=== PATIENT | female | born 2000 | race Hispanic/Latino ===

== ENCOUNTER 2024-02-29 16:07 | Observation (INO) | payer OTHER ==
[~2024-02-29] VITALS: Ht 157.5 cm; Wt 74.0 kg
[2024-02-29 16:56] LABS: BASOPHILS % 0.3 % (0.0-1.0); EOSINOPHILS % 0.2 % (0.0-6.0); HEMATOCRIT 44.9 % (34.2-44.1); HEMOGLOBIN 15.3 g/dL (12.0-16.0); LYMPHOCYTES # (AUTO) 1.4 (1.0-3.2); LYMPHOCYTES % 10.9 % (18.0-39.1); MEAN CORPUSCULAR HEMOGLOBIN 31.3 pg (28-32); MEAN CORPUSCULAR HGB CONC 34.1 g/dL (31-35); MEAN CORPUSCULAR VOLUME 91.8 fL (81-99); MONOCYTES # (AUTO) 0.2 (0.2-0.8); MONOCYTES % 1.8 % (4.4-11.3); NEUTROPHILS # (AUTO) 10.8 (2.1-6.9); NEUTROPHILS % 86.5 % (38.7-80.0); PLATELET COUNT 414 x10e3/uL (140-360); RED BLOOD COUNT 4.89 x10e6/uL (3.6-5.1); RED CELL DISTRIBUTION WIDTH 12.3 % (11.7-14.4); WHITE BLOOD COUNT 12.51 x10e3/uL (4.8-10.8)
[2024-02-29 17:12] LABS: ALANINE AMINOTRANSFERASE 57 IU/L (0-55); ALBUMIN 4.4 g/dL (3.5-5.0); ALBUMIN/GLOBULIN RATIO 1.3 (0.8-2.0); ALKALINE PHOSPHATASE 104 IU/L (40-150); ANION GAP 16.4 mmol/L (8-16); BILIRUBIN,TOTAL 0.5 mg/dL (0.2-1.2); BLOOD UREA NITROGEN 16 mg/dL (7-26); BUN/CREATININE RATIO 19 (6-25); CALCIUM 9.4 mg/dL (8.4-10.2); CARBON DIOXIDE 20 mmol/L (22-29); CHLORIDE 105 mmol/L (98-107); CREATININE, SERUM 0.84 mg/dL (0.57-1.11); EST GLOMERULAR FILTRATION RATE 99 ML/MIN (>=60); GLUCOSE 102 mg/dL (74-118); POTASSIUM 4.4 mmol/L (3.5-5.1); SODIUM 137 mmol/L (136-145); TOTAL PROTEIN 7.7 g/dL (6.5-8.1)
[2024-02-29 17:18] LABS: TROPONIN I < 0.001 ng/mL (0-0.300)
[2024-02-29] MEDS ORDERED: IOPAMIDOL 370 MG/ML 100 ML INFUS..BTL INJ ONE (17:20)
[2024-02-29 17:29] LABS: INFLUENZAE A&B ANTIGEN (RAPID) NEGATIVE (NEGATIVE); RESPIRATORY SYNC. VIRUS NEGATIVE (NEGATIVE)
[2024-02-29] MEDS: SODIUM CHLORIDE 0.9% 1000ML 1,000 ML IV SCH ×2 (17:59→20:24)
[2024-02-29] MEDS: SODIUM CHLORIDE 0.9% 1000ML 1,000 ML IV ONE (18:17)
[2024-02-29 20:09] VITALS: PULSE 111; RESP 18; TEMP 98.8
[2024-02-29] MEDS ORDERED: ALBUTEROL SULF 0.083% NEB SOLN 3 ML NEB NEB SCH (20:15)
[2024-02-29] MEDS ORDERED: ACETAMINOPHEN 325 MG TAB PO PRN (20:15)
[2024-02-29 21:05] VITALS: BP 111/85; PULSE 116; RESP 22; TEMP 98.6; O2SAT 97
[2024-02-29 21:33] VITALS: BP 111/85; PULSE 117; RESP 20; TEMP 98.6; O2SAT 97
[2024-02-29 21:39] VITALS: BP 111/85; PULSE 116; RESP 20; TEMP 98.6; O2SAT 97
[2024-03-01] VITALS (10 sets, daily range): BP systolic 109–126; BP diastolic 73–83; PULSE 74–131; RESP 16–23; TEMP 97.8–99.9; O2SAT 95–98
[2024-03-01] MEDS ORDERED: IPRATROPIUM BROMIDE 0.02% 2.5 ML NEB NEB SCH
[2024-03-01 08:33] LABS: CREATINE KINASE 29 IU/L (29-168)
[2024-03-01 09:17] LABS: TROPONIN I < 0.001 ng/mL (0-0.300)
[2024-03-01] MEDS: METHYLPREDNISOLONE SOD SUCC 40 MG/ML VIAL 1ML IV ONE (12:48)
[2024-03-01] MEDS: ALBUTEROL/IPRATROPIUM 3 ML NEB NEB SCH (13:47)
[2024-03-01] MEDS ORDERED: ALBUTEROL SULF 0.083% NEB SOLN 3 ML NEB NEB SCH (15:00)
[2024-03-01] MEDS ORDERED: BENZONATATE 100 MG CAP PO PRN (17:00)
[2024-03-01] MEDS: BENZONATATE 100 MG CAP PO ONE (17:11)
[2024-03-01] MEDS: BUDESONIDE/FORMOTEROL 160/4.5MCG INHALER INH SCH (19:34)
[2024-03-02] VITALS (7 sets, daily range): BP systolic 115–126; BP diastolic 71–82; PULSE 90–127; RESP 16–22; TEMP 97.9–98.7; O2SAT 94–99
[2024-03-02 08:15] LABS: TROPONIN I 0.004 ng/mL (0-0.300)
[2024-03-02 08:50] LABS: BASOPHILS % 0.1 % (0.0-1.0); HEMATOCRIT 33.3 % (34.2-44.1); HEMOGLOBIN 12.6 g/dL (12.0-16.0); LYMPHOCYTES # (AUTO) 3.1 (1.0-3.2); LYMPHOCYTES % 33.9 % (18.0-39.1); MEAN CORPUSCULAR HEMOGLOBIN 36.7 pg (28-32); MEAN CORPUSCULAR HGB CONC 37.8 g/dL (31-35); MEAN CORPUSCULAR VOLUME 97.1 fL (81-99); MONOCYTES % 10.7 % (4.4-11.3); NEUTROPHILS # (AUTO) 5.1 (2.1-6.9); NEUTROPHILS % 55.1 % (38.7-80.0); PLATELET COUNT 304 x10e3/uL (140-360); RED BLOOD COUNT 3.43 x10e6/uL (3.6-5.1); RED CELL DISTRIBUTION WIDTH 13.2 % (11.7-14.4); WHITE BLOOD COUNT 9.26 x10e3/uL (4.8-10.8)
[2024-03-02 09:01] LABS: ANION GAP 13.8 mmol/L (8-16); CALCIUM 8.6 mg/dL (8.4-10.2); CREATININE, SERUM 0.6 mg/dL (0.57-1.11); MAGNESIUM 1.9 MG/DL (1.3-2.1); PHOSPHORUS 3.8 MG/DL (2.3-4.7); POTASSIUM 3.8 mmol/L (3.5-5.1)
[2024-03-02] MEDS ORDERED: SYMBICORT 16010.2 GM INH (09:25)
[2024-03-02] MEDS ORDERED: ACETAMINOPHEN325 M1 PO (09:25)
[2024-03-02] MEDS ORDERED: BENZONATATE100 MG PO (09:25)
[2024-03-02] MEDS ORDERED: CEFUROXIME250 MG PO (09:25)
[2024-03-02] MEDS ORDERED: AZITHROMYCIN250 MG PO (09:25)
== END 2024-03-02 10:35 | disposition home or self-care (01) ==
LOC: ER 16:11 → ERHOLD 20:05 → MED/SURG3 20:58
PROVIDERS: ADMIT Internal Medicine; ATTEND Internal Medicine
DX: A41.9 Sepsis, unspecified organism (principal); J18.9 Pneumonia, unspecified organism; E87.20 Acidosis, unspecified; R00.0 Tachycardia, unspecified; R05.9 Cough, unspecified; R06.2 Wheezing; R63.4 Abnormal weight loss; Z68.29 Body mass index [BMI] 29.0-29.9, adult; Z11.52 Encounter for screening for COVID-19; Z88.0 Allergy status to penicillin
CPT/HCPCS: 36415 ×2; 71260; 80048; 80053; 82550 ×2; 83605; 83735; 84100; 84484 ×3; 84702; 85025 ×2; 87040; 87400; 87420; 93005; 94640 ×2; 94799 ×2; 99284; G0378 ×3; J0456 ×2; J0696 ×2; J2919; J7030; J7050 ×2; Q9967; U0002

== ENCOUNTER 2025-02-05 22:35 | Emergency (ER) | payer OTHER ==
[~2025-02-05] VITALS: Ht 157.5 cm; Wt 74.8 kg
[~2025-02-05 22:35] MED LIST: ACETAMINOPHEN325 M1 PO; AZITHROMYCIN250 MG PO; BENZONATATE100 MG PO; CEFUROXIME250 MG PO; SYMBICORT 16010.2 GM INH
[2025-02-06] MEDS: FAMOTIDINE 20 MG/2 ML VIAL IV STA
[2025-02-06] MEDS: SODIUM CHLORIDE 0.9% 1000ML 1,000 ML IV ONE
[2025-02-06] MEDS: CYCLOBENZAPRINE HCL 10 MG TAB PO ONE (01:07)
[2025-02-06 01:17] VITALS: BP 106/69; PULSE 77; RESP 16; RESP 18; TEMP 97.9; TEMP 98.4; O2SAT 99
== END 2025-02-06 01:20 | disposition home or self-care (01) ==
LOC: FSED 22:39
DX: R55 Syncope and collapse (principal); R07.89 Other chest pain; R60.9 Edema, unspecified; R94.31 Abnormal electrocardiogram [ECG] [EKG]
CPT/HCPCS: 70450; 71046; 80053; 80307; 81003; 81025; 84484; 85025; 93005; 99284; J1308; J7030